=== PATIENT | male | born 1940 | race Caucasian/White ===

== ENCOUNTER → 2019-05-02 11:00 | Outpatient (BNVA) | payer MEDICARE, OTHER, SELFPAY | PROVIDERS: Family Provider Internal Medicine; Visit Provider Urology | DX: N41.9 Inflammatory disease of prostate, unspecified (principal); R97.20 Elevated prostate specific antigen [PSA] | CPT/HCPCS: 81001; 84153 ==

== ENCOUNTER → 2019-05-17 09:55 | Outpatient (BNVA) | payer MEDICARE, OTHER, SELFPAY | PROVIDERS: Family Provider Internal Medicine; Visit Provider Urology | DX: N41.9 Inflammatory disease of prostate, unspecified (principal); N41.8 Other inflammatory diseases of prostate; R97.20 Elevated prostate specific antigen [PSA] | CPT/HCPCS: 81001 ==

== ENCOUNTER → 2019-08-09 10:31 | Outpatient (BNVA) | payer MEDICARE, OTHER, SELFPAY | PROVIDERS: Family Provider Internal Medicine; Visit Provider Urology | DX: R97.20 Elevated prostate specific antigen [PSA] (principal); N39.9 Disorder of urinary system, unspecified | CPT/HCPCS: 84153 ==

== ENCOUNTER → 2019-08-10 14:01 | Outpatient (BNVA) | payer MEDICARE, OTHER, SELFPAY | PROVIDERS: Family Provider Internal Medicine; Visit Provider Urology | DX: N41.8 Other inflammatory diseases of prostate (principal); R97.20 Elevated prostate specific antigen [PSA] | CPT/HCPCS: 81001 ==

== ENCOUNTER 2019-11-22 09:24 | Outpatient (CLI) | payer MEDICARE, OTHER, SELFPAY ==
--- NOTE | 2019-11-22 09:32 | CT_ITS ---
WS: [id number] CT CHEST, ABDOMEN AND PELVIS WITH CONTRAST. HISTORY: MELANOMA TECHNIQUE: Contiguous 5 mm axial imaging performed through the chest, abdomen and pelvis with IV cont rast, oral contrast has been provided. Coronal and sagittal reformats chest. Coronal and sagittal ref ormats through the abdomen and pelvis. All CT scans at [facility] use at least one of the se dose optimization techniques: automated exposure control; mA and/or kV adjustment per patient size (includes targeted exams where dose is matched to clinical indication); or iterative reconstruction. CONTRAST: Visipaque 320; 95 mL IV. DLP: 1889.08 mGy.cm COMPARISON: 11/18/2018, 11/16/2017, 12/02/[address]: Very slight slow increase in size of the RIGHT upper lobe pulmonary nodule, image 17 of ser ies 4. Nodule now measures 10 mm at its maximum diameter. Additional 7 mm nodule RIGHT upper lobe is stable. Stable groundglass attenuation measuring 11 mm LEFT upper lobe. No new pulmonary nodules. Sub centimeter mediastinal and hilar lymph nodes. The largest lymph nodes are more rounded measuring 9 mm in the RIGHT paratracheal and AP window. These are not significantly changed. Heart size is normal. Mild enlargement of the pulmonary artery. No pericardial or pleural effusions. Abdomen CT: Mild hepatic steatosis. Stable 1 cm cyst LEFT lobe of the liver. No bile duct dilatation. Splenic granulomata. Negative spleen and gallbladder. No adrenal mass. Cortical scar upper pole RIGH T kidney. Mild atherosclerosis aorta. No ascites. No adenopathy. Pelvic CT: Normal appendix. There is no GI tract obstruction. Mild prostate gland enlargement No osteoblastic or osteolytic bone disease. CT/CT chest abd pel w con* IMPRESSION: 1. Very slight increase in size of the RIGHT upper lobe nodule now measuring 1 0 mm. Mass has very slowly increased in size since 2017. The remaining upper lo be subsolid and groundglass nodules are essentially stable. Indolent or slow-gr owing neoplasm is not excluded. 2. Hilar and mediastinal lymph nodes are also unchanged with the largest measu ring 9 mm in short axis diameter. 3. No metastatic disease to the liver.
[2019-11-22 10:14] LABS: Basophils # 0.1 10^3/uL (0.0-0.1); Basophils % 0.9 %; Eosinophils # 0.2 10^3/uL (0.0-0.8); Eosinophils % 3.2 %; Hematocrit 47.8 % (42.0-52.0); Hemoglobin 15.6 g/dL (11.7-16.6); Lymphocytes # 2.3 10^3/uL (0.8-4.8); Lymphocytes % 34.8 %; Mean Corpuscular HGB Conc 32.6 g/dL (30.0-36.0); Mean Corpuscular Hemoglobin 30.1 pg (28.0-34.0); Mean Corpuscular Volume 92.3 fL (80-94); Monocytes # 0.7 10^3/uL (0.2-0.9); Monocytes % 10.2 %; Neutrophils # 3.31 10^3/uL (1.8-7.7); Neutrophils % 50.6 %; Nucleated Red Blood Cells % 0 %; Platelet Count 226 10^3/cmm (130-400); Red Blood Count 5.18 10^6/uL (4.1-5.3); Red Cell Distribution Width 12.7 % (12.1-15.1); White Blood Count 6.6 10^3/uL (4.0-10.0)
[2019-11-22 10:33] LABS: Alanine Aminotransferase 16 U/L (0-41); Albumin Level 4.6 g/dL (3.5-5.2); Alkaline Phosphatase 51 IU/L (40-130); Anion Gap 14.4 (5-19); Aspartate Amino Transferase 41 U/L (0-40); Blood Urea Nitrogen 25 mg/dL (8-23); Calcium 9.9 mg/dL (8.5-10.5); Carbon Dioxide 27 mmol/L (22-29); Chloride 102 mmol/L (98-107); Globulin 3.2 g/dL (1.3-4.6); Glucose 113 mg/dL (65-115); Lactate Dehydrogenase 186 U/L (135-225); Osmolality Calculated 293 mOsm/kg (285-295); Potassium 4.4 mmol/L (3.5-5.1); Sodium 139 mmol/L (136-145); Total Bilirubin 0.6 mg/dL (0.15-1.2); Total Protein 7.8 g/dL (6.6-8.7)
[2019-11-22] MEDS: iodixanol 320 mg/mL 100mL Btl IV (11:02)
[2019-11-22] MEDS: iohexol 300 mg/mL 50 mL Btl PO (11:05)
== END 2019-11-22 09:25 | disposition home or self-care (01) ==
LOC: CT 09:26
PROVIDERS: PCP Electrodiagnostic Medicine; Visit Provider Internal Medicine Medical Oncology
DX: C43.4 Malignant melanoma of scalp and neck (principal); R91.1 Solitary pulmonary nodule
CPT/HCPCS: 36415; 71260; 74177; 80053; 83615; 85025

== ENCOUNTER 2019-11-28 13:50 | Outpatient (CLI) | payer MEDICARE, OTHER, SELFPAY ==
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
== END 2019-11-28 13:51 | disposition home or self-care (01) ==
LOC: ONCMED 13:52
PROVIDERS: PCP Electrodiagnostic Medicine; Visit Provider Internal Medicine Medical Oncology
DX: Z08 Encounter for follow-up examination after completed treatment for malignant neoplasm (principal); Z85.820 Personal history of malignant melanoma of skin; R91.8 Other nonspecific abnormal finding of lung field; I10 Essential (primary) hypertension; Z86.73 Personal history of transient ischemic attack (TIA), and cerebral infarction without residual deficits; G47.33 Obstructive sleep apnea (adult) (pediatric); F17.211 Nicotine dependence, cigarettes, in remission; F17.221 Nicotine dependence, chewing tobacco, in remission
CPT/HCPCS: G0463

== ENCOUNTER → 2020-02-06 09:00 | Outpatient (BNVA) | payer MEDICARE, OTHER, SELFPAY | PROVIDERS: PCP Electrodiagnostic Medicine; Visit Provider Urology | DX: R97.20 Elevated prostate specific antigen [PSA] (principal) | CPT/HCPCS: 84153 ==

== ENCOUNTER → 2020-02-08 11:05 | Outpatient (BNVA) | payer MEDICARE, OTHER, SELFPAY | PROVIDERS: PCP Electrodiagnostic Medicine; Visit Provider Urology | DX: R97.20 Elevated prostate specific antigen [PSA] (principal) | CPT/HCPCS: 81003 ==

== ENCOUNTER → 2020-08-07 14:54 | Outpatient (BNVA) | payer MEDICARE, OTHER, SELFPAY | PROVIDERS: PCP Electrodiagnostic Medicine; Visit Provider Urology | DX: R97.20 Elevated prostate specific antigen [PSA] (principal) | CPT/HCPCS: 84153 ==

== ENCOUNTER → 2020-08-14 11:00 | Outpatient (BNVA) | payer MEDICARE, OTHER, SELFPAY | PROVIDERS: PCP Electrodiagnostic Medicine; Visit Provider Urology | DX: R97.20 Elevated prostate specific antigen [PSA] (principal) | CPT/HCPCS: 81003 ==

== ENCOUNTER 2020-12-13 08:52 | Outpatient (CLI) | payer MEDICARE, OTHER, SELFPAY ==
[2020-12-13 09:30] LABS: Basophils % 0.6 %; Eosinophils # 0.2 10^3/uL (0.0-0.8); Eosinophils % 2.7 %; Hematocrit 42.9 % (42.0-52.0); Hemoglobin 13.8 g/dL (11.7-16.6); Lymphocytes # 2.4 10^3/uL (0.8-4.8); Lymphocytes % 34.2 %; Mean Corpuscular HGB Conc 32.2 g/dL (30.0-36.0); Mean Corpuscular Hemoglobin 29.5 pg (28.0-34.0); Mean Corpuscular Volume 91.7 fl (80-94); Mean Platelet Volume 10.5 fL (7.4-10.4); Monocytes # 0.6 10^3/uL (0.2-0.9); Monocytes % 8.3 %; Neutrophils # 3.75 10^3/uL (1.8-7.7); Neutrophils % 53.9 %; Nucleated Red Blood Cells % 0 %; Platelet Count 222 10^3/cmm (130-400); Red Blood Count 4.68 10^6/uL (4.1-5.3); Red Cell Distribution Width 13.7 % (12.1-15.1)
--- NOTE | 2020-12-13 09:56 | CT_ITS ---
WS: [id number] CT CHEST TECHNIQUE: Noncontrast CT of the chest with coronal and sagittal reformatted images. CLINICAL INFORMATION: MALIGNANT MELANOMA OF SCALP NECK COMPARISON: CT November 22, 2019 and . Multiple prior examinations dating back to 2016. DLP: 869.[address] scans at [facility] use at least one of these dose optimization techniques: automated e xposure control; mA and/or kV adjustment per patient size (includes targeted exams where dose is matc hed to clinical indication); or iterative reconstruction. FINDINGS: Semisolid right upper lobe nodule measures slightly larger compared to November 22, 2019. This measu res approximately 15 x 13 mm compared to 12 x 10 mm previously. Previously described 8 mm nodule in t he right upper lobe medially is unchanged in size but appears slightly more solid today. Hazy groundglass opacity left upper lobe today measures 12 x 10 mm compared to 10 mm previous. This a ppears slightly progressed. Findings are suspicious for progressive disease. Prominent anterior mediastinal and paratracheal lymph nodes are not significantly changed. No axillary lymphadenopathy. Incidental left hepatic cyst. Adrenal glands are normal. Splenic granulo mas. Hypertrophic changes thoracic spine. CT/CT chest wo con [id number] IMPRESSION: 1. Previously described nodules have slightly progressed compared to the prior examinations described above. Findings are suspicious for progressive disease. This can be further evaluated PET/CT. 2. Prominent anterior mediastinal and paratracheal lymph nodes are unchanged. 3. No other significant changes from previous.
[2020-12-13 10:02] LABS: Alanine Aminotransferase 7 U/L (0-41); Albumin Level 4.2 g/dL (3.5-5.2); Alkaline Phosphatase 52 IU/L (40-130); Aspartate Amino Transferase 22 U/L (0-40); Blood Urea Nitrogen 21 mg/dL (8-23); Calcium 9.3 mg/dL (8.5-10.5); Carbon Dioxide 27 mmol/L (22-29); Chloride 103 mmol/L (98-107); Globulin 3.1 g/dL (1.3-4.6); Glucose 95 mg/dL (65-115); Lactate Dehydrogenase 165 U/L (135-225); Osmolality Calculated 291 mOsm/kg (285-295); Sodium 139 mmol/L (136-145); Total Bilirubin 0.4 mg/dL (0.15-1.2); Total Protein 7.3 g/dL (6.6-8.7)
== END 2020-12-13 08:53 | disposition home or self-care (01) ==
LOC: CT 08:59 → ONCMED 09:04
PROVIDERS: PCP Electrodiagnostic Medicine; Visit Provider Internal Medicine Medical Oncology
DX: C43.4 Malignant melanoma of scalp and neck (principal)
CPT/HCPCS: 36415; 71250; 80053; 83615; 85025

== ENCOUNTER 2020-12-19 06:38 | Outpatient (CLI) | payer MEDICARE, OTHER, SELFPAY ==
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
== END 2020-12-19 06:39 | disposition home or self-care (01) ==
LOC: ONCMED 06:39
PROVIDERS: PCP Electrodiagnostic Medicine; Visit Provider Internal Medicine Medical Oncology
DX: C43.4 Malignant melanoma of scalp and neck (principal); R91.8 Other nonspecific abnormal finding of lung field; I10 Essential (primary) hypertension; G47.33 Obstructive sleep apnea (adult) (pediatric); K21.9 Gastro-esophageal reflux disease without esophagitis; Z86.16 Personal history of COVID-19; Z86.73 Personal history of transient ischemic attack (TIA), and cerebral infarction without residual deficits; Z87.891 Personal history of nicotine dependence
CPT/HCPCS: 99214

== ENCOUNTER → 2021-02-04 10:33 | Outpatient (BNVA) | payer MEDICARE, OTHER, SELFPAY | PROVIDERS: PCP Electrodiagnostic Medicine; Visit Provider Urology | DX: N41.9 Inflammatory disease of prostate, unspecified (principal); R97.20 Elevated prostate specific antigen [PSA] | CPT/HCPCS: 81003 ==

== ENCOUNTER 2021-06-19 07:44 | Outpatient (CLI) | payer MEDICARE, OTHER, SELFPAY ==
--- NOTE | 2021-06-19 07:55 | CT_ITS ---
WS: [id number] CT NECK TECHNIQUE: Contrast-enhanced CT of the neck with coronal and sagittal reformatted images. CLINICAL INFORMATION: LOCALIZED SWELLING,MASS, LUMP COMPARISON: PET CT January 05, 2021 DLP: 409.[address] scans at [facility] use at least one of these dose optimization techniques: automated e xposure control; mA and/or kV adjustment per patient size (includes targeted exams where dose is matc hed to clinical indication); or iterative reconstruction. FINDINGS: Parotid glands are normal. Normal submandibular glands. Beam hardening artifact degrades images from dental artifact. Normal posterior nasopharynx. Normal parapharyngeal fat. Normal epiglottis. Normal v allecula and piriform sinuses. No evidence of supraglottic or glottic mass. Normal subglottic airway. Normal thyroid gland. Spiculated lesion in the RIGHT upper lobe suspicious for neoplasm measuring 1. 5 cm appears increased in size since December 13, 2020. It also appears slightly more dense today. Rec ommend further evaluation with PET/CT. Partially visualized groundglass nodule in the RIGHT upper lob e posteriorly measuring 7 mm appears stable. Fibrosis in the lung apices. Severe stenosis RIGHT proximal ICA with a tiny residual lumen. Diminutive ICA appears patent to the s kull base. Further evaluation with dedicated CTA. Moderate stenosis LEFT proximal ICA with calcified ulcerated plaque. No cervical lymphadenopathy. Mild spondylitic changes cervical spine. Partial opacification RIGHT mas toid tip. LEFT mastoid air cells well aerated. Partial opacification LEFT maxillary sinus. Small amou nt of fluid RIGHT maxillary sinus. Mucosal thickening ethmoid air cells.. CT/CT neck w con* [id number] IMPRESSION: 1. No evidence of subcutaneous mass or lesion in the LEFT upper neck or retroa uricular region in the area of palpable concern. 2. No cervical lymphadenopathy. 3. No evidence of supraglottic or glottic mass. 4. Salivary glands are normal. 5. Spiculated RIGHT upper lobe lesion appears slightly progressed since Octobe 2020 suspicious for neoplasm. Recommend further evaluation with PET/CT. 6. High-grade RIGHT proximal ICA stenosis with with diminutive cervical ICA pa tent to the skull base. Moderate stenosis LEFT proximal ICA with ulcerated athe romatous plaque. Recommend further evaluation with CTA. 7. LEFT maxillary sinusitis. Small amount of fluid in the RIGHT maxillary sinu s. Mild mucosal thickening RIGHT mastoid tip.
--- NOTE | 2021-06-19 07:55 | FL_ITS ---
WS: [id number] Barium swallow and esophagram, 06/19/2021 Clinical Data: LOCALIZED SWELLING,MASS LUMP, NECK Comparison: None. Fluoroscopy time: 1min [id number] # of spot films: 9 Findings: The patient swallowed the thick and thin barium, and it flowed through the hypopharynx without hesita tion. No stricture, mass, polyp or erosion was seen. There is a slight posterior indentation at the C 5-C6 level from osteoarthritis. The thick barium showed pooling in the piriformis and epiglottis but no penetration or aspiration. The barium entered the esophagus and there was normal motility throughout. There were occasional tert iary contractions. No reflux, stricture, polyp, mass, erosion or ulcer was noted. There were small le ft lateral diverticulum of the distal esophagus. There was a small hiatal hernia but there was no ref lux. FL/FL barium swallow [id number] Impression: 1. Minimal indentation of the C5-C6 level on of the hypopharynx from C5-C6 oste oarthritis. 2. Pooling of the thick barium in the hypopharynx which did clear on further sw allows. 3. Incidental distal diverticula of the esophagus with a hiatal hernia but no r eflux.
[2021-06-19 08:49] LABS: Blood Urea Nitrogen 25 mg/dL (8-23)
[2021-06-19] MEDS: iodixanol 320 mg/mL 100mL Btl IV (08:52)
== END 2021-06-19 07:45 | disposition home or self-care (01) ==
LOC: RAD 07:47
PROVIDERS: PCP Electrodiagnostic Medicine; Visit Provider Specialist
DX: R22.1 Localized swelling, mass and lump, neck (principal)
CPT/HCPCS: 70491; 74220; 82565; 84520

== ENCOUNTER 2021-08-20 07:01 | Outpatient (CLI) | payer MEDICARE, OTHER, SELFPAY ==
--- NOTE | 2021-08-20 07:15 | USCV_ITS ---
Ricardo Resendiz Age: 81 Gender: M : 1940 Exam Date: 08/20/2021 07:18 Ordering Phys: Mainor Corado MD ([email or web address]) Technologist: ELIF Exam Location: [facility] – [place] Indication: personal history of transient ischemia Risk Factors: Previous Vascular Surgery: Right Brachial BP: / Left Brachial BP: / Right Left Velocity (cm/s) Spectral Plaque Velocity (cm/s) Spectral Plaque Syst/Diast Broadening Syst/Diast Broadening 50.90/ 11.80 Prox CCA 77.00 / 20.80 49.00/ 12.40 Mid CCA 60.60 / 17.30 57.10/ 11.20 Distal CCA 112.90/ 32.80 168.55/48.95 Prox ICA 134.00/ 47.65 116.20/38.70 Mid ICA 82.10 / 19.30 53.30/ 21.40 Distal ICA 79.10 / 26.40 83.20 ECA 98.40 3.46 ICA/CCA 2.49 Antegrade Vertebral Antegrade 45.30/ 10.90 cm/s 35.50/ 14.90 cm/s Tri Subclavian Tri 76.90 79.60 FINDINGS Comparison:. 09/09/13. Diffuse bilateral scattered calcified plaque and intimal thickening throughout the common carotid arteries and extending through the bifurcation. Progression of carotid atherosclerosis since the prior exam. Elevated velocities and spectral broadening. Antegrade vertebral arteries. CONCLUSIONS Right ICA stenosis 50-69%. Left ICA stenosis 50-69%. Progression of diffuse carotid atherosclerosis since 2013. Dr. Cortney Jain DO (Electronically Signed) Final Date: 20 August 2021 08:27 S
== END 2021-08-20 07:02 | disposition home or self-care (01) ==
LOC: RAD 07:02
PROVIDERS: PCP Electrodiagnostic Medicine; Visit Provider Internal Medicine Cardiovascular Disease
DX: I77.9 Disorder of arteries and arterioles, unspecified (principal); Z86.73 Personal history of transient ischemic attack (TIA), and cerebral infarction without residual deficits
CPT/HCPCS: 93880

== ENCOUNTER 2021-11-04 15:25 | Outpatient (CLI) | payer MEDICARE, OTHER, SELFPAY | END 2021-11-04 15:26 | disposition home or self-care (01) | LOC: LAB 15:29 | PROVIDERS: PCP Electrodiagnostic Medicine; Visit Provider Urology | DX: R97.20 Elevated prostate specific antigen [PSA] (principal) | CPT/HCPCS: 36415; 84153 ==

== ENCOUNTER → 2021-11-05 10:26 | Outpatient (BNVA) | payer MEDICARE, OTHER, SELFPAY | PROVIDERS: PCP Electrodiagnostic Medicine; Visit Provider Urology | DX: R97.20 Elevated prostate specific antigen [PSA] (principal); N41.1 Chronic prostatitis; Z86.73 Personal history of transient ischemic attack (TIA), and cerebral infarction without residual deficits; I10 Essential (primary) hypertension; Z80.42 Family history of malignant neoplasm of prostate | CPT/HCPCS: 51798; 99213 ==

== ENCOUNTER → 2021-11-18 10:44 | Outpatient (BNVA) | payer MEDICARE, OTHER, SELFPAY | PROVIDERS: PCP Electrodiagnostic Medicine; Visit Provider Urology | DX: R97.20 Elevated prostate specific antigen [PSA] (principal); N41.1 Chronic prostatitis; Z86.73 Personal history of transient ischemic attack (TIA), and cerebral infarction without residual deficits; Z80.42 Family history of malignant neoplasm of prostate; I10 Essential (primary) hypertension | CPT/HCPCS: 81003 ==

== ENCOUNTER → 2021-12-20 09:09 | Outpatient (BNVA) | payer MEDICARE, OTHER, SELFPAY | PROVIDERS: PCP Electrodiagnostic Medicine; Visit Provider Urology | DX: N41.1 Chronic prostatitis (principal); R97.20 Elevated prostate specific antigen [PSA]; Z80.42 Family history of malignant neoplasm of prostate | CPT/HCPCS: 51741; 51798; 81003; 99213 ==

== ENCOUNTER → 2022-01-19 18:50 | Outpatient (BNVA) | payer MEDICARE, OTHER, SELFPAY | PROVIDERS: PCP Electrodiagnostic Medicine; Visit Provider Registered Nurse Neonatal Intensive Care | DX: N39.0 Urinary tract infection, site not specified (principal); R39.9 Unspecified symptoms and signs involving the genitourinary system | CPT/HCPCS: 81000; 87086 ==

== ENCOUNTER → 2022-02-03 11:30 | Outpatient (BNVA) | payer MEDICARE, OTHER, SELFPAY | PROVIDERS: PCP Electrodiagnostic Medicine; Visit Provider Urology | DX: N41.1 Chronic prostatitis (principal) | CPT/HCPCS: 51741; 51798; 81003; 99214 ==

== ENCOUNTER 2022-02-05 10:15 | Outpatient (CLI) | payer MEDICARE, OTHER, SELFPAY ==
--- NOTE | 2022-02-05 10:00 | CT_ITS ---
WS: [id number] CT CHEST TECHNIQUE: Contrast enhanced CT of the chest with coronal and sagittal reformatted images. CLINICAL INFORMATION: bilateral lung nodules COMPARISON: CT chest December 13, 2020. PET/CT January 05, 2021 DLP: 781.[address] scans at [facility] use at least one of these dose optimization techniques: automated e xposure control; mA and/or kV adjustment per patient size (includes targeted exams where dose is matc hed to clinical indication); or iterative reconstruction. FINDINGS: Spiculated irregular RIGHT upper lobe nodule has progressed compared to previous suspicious for neopl asm. This also has a more solid appearance today. This measures approximately 1.4 x 2.1 CM. This was equivocal on the prior PET/CT. Recommend additional PET/CT. New wedge-shaped infiltrate in the RIGHT lower lobe with air bronchograms suspicious for pneumonia. W edge-shaped infiltrate measures 3.9 x 2.3 cm. Slight LEFT basilar atelectasis. Groundglass opacity in the LEFT upper lobe laterally has slightly progressed compared to previous today measuring 13 x 12 m m. Slightly spiculated RIGHT upper lobe posterior medial opacity measuring 7 mm is unchanged. Fibrosis i n the lung apices. Slight atelectasis in the RIGHT middle lobe. New pulmonary opacity RIGHT lower lob e measuring 7 mm. This is new compared to previous. Calcified granuloma LEFT lower lobe. Patchy opaci ties in the LEFT lower lobe. CT/CT chest w con* [id number] IMPRESSION: 1. Spiculated irregular pulmonary lesion in the RIGHT upper lobe has progresse d compared to previous. Recommend further evaluation with PET/CT. 2. Slightly progressed groundglass opacity in the LEFT upper lobe laterally. 3. New wedge-shaped consolidation RIGHT lower lobe measuring 2.3 x 3.9 cm susp icious for pneumonia with air bronchograms. 4. New noncalcified nodule RIGHT lower lobe laterally measuring 7.6 mm. 5. Slight patchy infiltrates in the LEFT lower lobe. 6. A few prominent peribronchial lymph nodes are unchanged. 7. No other significant changes compared to previous.
[2022-02-05] MEDS: iohexol 350 mg/mL 500 mL Btl (per mL) IV (10:49)
[2022-02-05 12:55] LABS: Lactate Dehydrogenase 264 U/L (135-225)
== END 2022-02-05 10:16 | disposition home or self-care (01) ==
LOC: RAD 10:16
PROVIDERS: PCP Electrodiagnostic Medicine; Visit Provider Internal Medicine Medical Oncology
DX: C43.9 Malignant melanoma of skin, unspecified (principal); R91.8 Other nonspecific abnormal finding of lung field
CPT/HCPCS: 36415; 71260; 83615; Q9967

== ENCOUNTER 2022-02-11 14:03 | Oncology outpatient (recurring) (ONCR) | payer MEDICARE, OTHER, SELFPAY | END 2022-02-22 23:59 | disposition home or self-care (01) | PROVIDERS: PCP Electrodiagnostic Medicine; Visit Provider Internal Medicine Medical Oncology | DX: C43.4 Malignant melanoma of scalp and neck (principal); R91.1 Solitary pulmonary nodule; R91.8 Other nonspecific abnormal finding of lung field | CPT/HCPCS: 99214 ==

== ENCOUNTER → 2022-02-18 10:57 | Outpatient (BNVA) | payer MEDICARE, OTHER, SELFPAY | PROVIDERS: PCP Electrodiagnostic Medicine; Visit Provider Urology | DX: N41.1 Chronic prostatitis (principal); R41.89 Other symptoms and signs involving cognitive functions and awareness | CPT/HCPCS: 51798; 81003; 99213 ==

== ENCOUNTER → 2022-08-08 09:19 | Outpatient (BNVA) | payer MEDICARE, SELFPAY | PROVIDERS: PCP Electrodiagnostic Medicine; Visit Provider Internal Medicine Cardiovascular Disease | DX: I10 Essential (primary) hypertension (principal); E78.5 Hyperlipidemia, unspecified; Z86.73 Personal history of transient ischemic attack (TIA), and cerebral infarction without residual deficits; Z87.891 Personal history of nicotine dependence | CPT/HCPCS: 99213 ==

== ENCOUNTER → 2022-12-08 09:29 | Outpatient (BNVA) | payer MEDICARE, SELFPAY | PROVIDERS: PCP Electrodiagnostic Medicine; Visit Provider Nurse Practitioner Family | DX: L57.0 Actinic keratosis (principal); Z85.828 Personal history of other malignant neoplasm of skin; Z85.820 Personal history of malignant melanoma of skin; L82.1 Other seborrheic keratosis; D22.5 Melanocytic nevi of trunk; L57.8 Other skin changes due to chronic exposure to nonionizing radiation; L81.4 Other melanin hyperpigmentation; L85.3 Xerosis cutis | CPT/HCPCS: 17000; 99213 ==

== ENCOUNTER → 2023-05-28 07:40 | Outpatient (BNVA) | payer MEDICARE, SELFPAY | PROVIDERS: PCP Electrodiagnostic Medicine; Referring Provider Electrodiagnostic Medicine; Visit Provider Psychiatry & Neurology Neurology | DX: I65.23 Occlusion and stenosis of bilateral carotid arteries (principal); Z86.73 Personal history of transient ischemic attack (TIA), and cerebral infarction without residual deficits; R29.90 Unspecified symptoms and signs involving the nervous system; Z87.891 Personal history of nicotine dependence; I10 Essential (primary) hypertension | CPT/HCPCS: 99203 ==

== ENCOUNTER → 2023-06-04 09:13 | Outpatient (BNVA) | payer MEDICARE, SELFPAY | PROVIDERS: PCP Electrodiagnostic Medicine; Visit Provider Nurse Practitioner Family | DX: L57.0 Actinic keratosis (principal); L82.1 Other seborrheic keratosis; D22.5 Melanocytic nevi of trunk; L57.8 Other skin changes due to chronic exposure to nonionizing radiation; L81.4 Other melanin hyperpigmentation; L85.3 Xerosis cutis; Z85.828 Personal history of other malignant neoplasm of skin | CPT/HCPCS: 17000; 99213 ==

== ENCOUNTER 2023-06-15 11:54 | Outpatient (CLI) | payer MEDICARE, SELFPAY ==
--- NOTE | 2023-06-15 12:15 | USCV_ITS ---
Martín Ricardo Age: 83 Gender: M : 1940 Exam Date: 06/15/2023 12:00 Ordering Phys: Levar Ovalles MD Technologist: CT Exam Location: [facility] [place] Indication: stenosis Risk Factors: Previous Vascular Surgery: Right Brachial BP: / Left Brachial BP: / Right Left Velocity (cm/s) Spectral Plaque Velocity (cm/s) Spectral Plaque Syst/Diast Broadening Syst/Diast Broadening 46.10/ 12.20 Prox CCA 99.00 / 17.90 40.40/ 10.30 Mid CCA 75.60 / 21.50 31.50/ 10.10 Distal CCA 72.00 / 21.50 / Prox ICA 497.00/ 191.10 / Mid ICA 70.60 / 17.90 / Distal ICA 64.80 / 17.50 92.90 ECA 97.20 ICA/CCA 6.90 Antegrade Vertebral Antegrade 45.00/ 19.00 cm/s 42.30/ 14.70 cm/s Bi Subclavian Bi 74.20 82.40 FINDINGS Comparison:. 08/20/21. Complete occlusion right ICA at the bifurcation, extensive plaque. New since the prior exam. Severe obstructive lesions noted in the left internal carotid artery estimated at 70-99% stenosis. Nearly occluded. Progression of stenosis. Antegrade vertebral arteries. CONCLUSIONS Complete occlusion right ICA. New since 2021. Left ICA stenosis 70-99%. Nearly completely occluded. Recommend evaluation by CV surgery. Dr. Cortney Jain DO (Electronically Signed) Final Date: 15 June 2023 13:59 S
== END 2023-06-15 11:55 | disposition home or self-care (01) ==
LOC: RAD 11:56
PROVIDERS: PCP Electrodiagnostic Medicine; Visit Provider Psychiatry & Neurology Neurology
DX: Z86.73 Personal history of transient ischemic attack (TIA), and cerebral infarction without residual deficits (principal); I65.23 Occlusion and stenosis of bilateral carotid arteries
CPT/HCPCS: 93880

== ENCOUNTER 2023-06-23 09:47 | Outpatient (CLI) | payer MEDICARE, SELFPAY ==
--- NOTE | 2023-06-23 09:52 | CTR_ITS ---
PROCEDURE INFORMATION: Exam: CTA Neck With Contrast Exam date and time: 06/23/2023 10:48 AM Age: 83 years old Clinical indication: Abnormal findings; Abnormal carotid US; Patient HX: Follow up to US carotids; Additional info: Carotid artery stenosis/occlusion, stat TECHNIQUE: Imaging protocol: Computed tomographic angiography of the neck with contrast. Exam focused on the cervical segments of the vasculature. 3D rendering (Not supervised by radiologist): MIP and/or 3D reconstructed images were created by the technologist. Radiation optimization: All CT scans at this facility use at least one of these dose optimization techniques: automated exposure control; mA and/or kV adjustment per patient size (includes targeted exams where dose is matched to clinical indication); or iterative reconstruction. Contrast material: OMNIPAQUE 350; Contrast volume: 100 ml; Contrast route: INTRAVENOUS (IV); COMPARISON: CT neck w con* [id number] 06/19/2021 8:32 AM RADIATION DOSE METRICS: Total DLP (mGy-cm): 237.11 FINDINGS: Right common carotid artery: There is moderate to severe soft and calcific plaque noted in the right carotid bulb with complete opacification of the right internal carotid artery. Right internal carotid artery: See Right common carotid artery finding. Right external carotid artery: No occlusion or stenosis of the origin. Left common carotid artery: See Left internal carotid artery finding. Left internal carotid artery: Soft and calcific moderate plaque is noted in the left carotid bulb extending into the left internal carotid artery causing focal short segment subtotal occlusion apparent central filling defect possibly represent free-floating thrombus. Left external carotid artery: No occlusion or stenosis of the origin. Right vertebral artery: No stenosis. No dissection or occlusion. Left vertebral artery: No stenosis. No dissection or occlusion. Orbital cavities: The patient is post bilateral cataract surgery. Paranasal sinuses: Mucosal thickening is noted within the right maxillary antrum and ethmoid air cells. Soft tissues: Normal. No significant soft tissue swelling. Bones/joints: No acute fracture. 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 Subtotal occlusion of the due to a combination of atheromatous plaque and possible free floating thrombus in the left proximal internal carotid artery. REFERENCES: NASCET CRITERIA. The degree of stenosis in the cervical segment of the internal carotid artery is based on NASCET criteria. Normal is no stenosis. Mild is less than 50% stenosis. Moderate is 50-69% stenosis. Severe is 70% to 99% stenosis. Total occlusion is no detectable patent lumen.
[2023-06-23 10:47] LABS: Blood Urea Nitrogen 23 mg/dL (8-23)
[2023-06-23] MEDS: iohexol 350 mg/mL 500 mL Btl (per mL) IV (10:57)
== END 2023-06-23 09:48 | disposition home or self-care (01) ==
LOC: RAD 09:48
PROVIDERS: Radiology Diagnostic Radiology; PCP Electrodiagnostic Medicine; Visit Provider Electrodiagnostic Medicine
DX: I65.21 Occlusion and stenosis of right carotid artery (principal)
CPT/HCPCS: 70498; 82565; 84520; Q9967

== ENCOUNTER → 2023-06-29 10:41 | Outpatient (BNVA) | payer MEDICARE, SELFPAY | PROVIDERS: PCP Electrodiagnostic Medicine; Visit Provider Thoracic Surgery (Cardiothoracic Vascular Surgery) | DX: I65.23 Occlusion and stenosis of bilateral carotid arteries (principal); Z87.891 Personal history of nicotine dependence; I10 Essential (primary) hypertension | CPT/HCPCS: 99204 ==

== ENCOUNTER → 2023-08-03 09:56 | Outpatient (BNVA) | payer MEDICARE, SELFPAY | PROVIDERS: PCP Electrodiagnostic Medicine; Visit Provider Internal Medicine Cardiovascular Disease | DX: I10 Essential (primary) hypertension (principal); I65.23 Occlusion and stenosis of bilateral carotid arteries; Z86.73 Personal history of transient ischemic attack (TIA), and cerebral infarction without residual deficits; E78.5 Hyperlipidemia, unspecified; Z87.891 Personal history of nicotine dependence | CPT/HCPCS: 99214 ==

== ENCOUNTER → 2023-08-25 09:50 | Outpatient (BNVA) | payer MEDICARE, SELFPAY | PROVIDERS: PCP Electrodiagnostic Medicine; Visit Provider Internal Medicine Cardiovascular Disease | DX: I10 Essential (primary) hypertension (principal); E78.5 Hyperlipidemia, unspecified; I48.91 Unspecified atrial fibrillation; I65.23 Occlusion and stenosis of bilateral carotid arteries; Z86.73 Personal history of transient ischemic attack (TIA), and cerebral infarction without residual deficits; Z79.01 Long term (current) use of anticoagulants; Z87.891 Personal history of nicotine dependence | CPT/HCPCS: 99214 ==

== ENCOUNTER 2023-09-01 06:51 | Outpatient (CLI) | payer MEDICARE, SELFPAY ==
--- NOTE | 2023-09-01 07:00 | USCV_ITS ---
Ricardo Resendiz Age: 83 Gender: M : 1940 Exam Date: 09/01/2023 07:13 Ordering Phys: Mainor Corado MD ([email or web address]) Technologist: LETHA [place] [facility] [place]: AFIB BP: 169 / 110 HR: 65 Rhythm: Atrial fibrillation Technical Quality: Adequate MEASUREMENTS (Male / Female) Normal Values 2D ECHO LV Diastolic Diameter PLAX 4.7 cm 4.2 - 5.9 / 3.9 - 5.3 cm IVS Diastolic Thickness 1.3 cm 0.6 - 1.0 / 0.6 - 0.9 cm IVS Systolic Thickness 1.5 cm LVPW Diastolic Thickness 1.3 cm 0.6 - 1.0 / 0.6 - 0.9 cm LVPW Systolic Thickness 2.4 cm LVOT Diameter 2.0 cm LV Ejection Fraction 2D Teich 61.8 % LV Ejection Fraction MOD 4C 54.4 % LV Ejection Fraction MOD 2C 54.1 % LV Ejection Fraction 2C AL 56.3 % LA Diameter 4.1 cm RA Systolic Volume 4C AL 40.9 ml RA Systolic Volume 4C MOD 39.9 ml LA Sys Volume AL 55.8 cm cubed LA Sys Volume Index AL 28.1 cm cubed/m squared Aorta at Sinotubular Diameter 2.6 cm IVC Diameter 1.7 cm M-MODE LA Ao Ratio MM 1.1 AV Cusp Separation MM 0.9 cm DOPPLER AV Peak Velocity 160.0 cm/s LVOT Peak Velocity 84.0 cm/s AV Area Cont Eq vti 2.0 cm squared AV Area Cont Eq pk 1.7 cm squared MV Peak Velocity 83.0 cm/s MV Area PHT 2.7 cm squared Mitral E to A Ratio 0.0 TR Peak Velocity 294.0 cm/s TR Peak Gradient 34.6 mmHg TR Mean Velocity 236.0 cm/s TR Mean Gradient 24.0 mmHg TR Velocity Time Integral 103.7 cm TV Peak E Velocity 41.0 cm/s Right Atrial Pressure 8.0 mmHg Pulmonary Artery Systolic Pressu 42.6 mmHg PV Peak Velocity 101.0 cm/s RV Ejection Time 0.3 s FINDINGS Left Ventricle Normal LV size ejection fraction of 55%. Mild concentric left ventricular hypertrophy.no regional wall motion abnormalities. Right Ventricle The right ventricle is normal in size and function. Right Atrium Mildly increased right atrial size. Left Atrium Mildly increased left atrial size. Mitral Valve Mild to moderate mitral valve regurgitation. Aortic Valve Minimally thickened aortic valve Tricuspid Valve Mild tricuspid valve regurgitation. Estimated pulmonary artery peak systolic pressure 43 mmHg Pulmonic Valve Moderate pulmonary valve regurgitation. Pericardium Normal pericardium without effusion. Aorta Normal ascending aorta dimension. IVC Normal IVC dimension with <50% respiratory change of the inferior vena cava. CONCLUSIONS Normal LV size ejection fraction of 55%. Mild concentric left ventricular hypertrophy.no regional wall motion abnormalities. Mild biatrial enlargement. Mild to moderate mitral valve regurgitation. Mild tricuspid valve regurgitation. Mild pulmonary hypertension. Estimated pulmonary artery peak systolic pressure 43 mmHg. There is no pericardial effusion. There are no intracardiac masses. Compared to the study from 09/09/2013, the valvular regurgitations, biatrial enlargement and pulmonary hypertension are new Dr Mainor Corado MD FACC (Electronically Signed) Final Date: 04 September 2023 20:23 S
== END 2023-09-01 06:52 | disposition home or self-care (01) ==
LOC: RAD 06:51
PROVIDERS: PCP Electrodiagnostic Medicine; Visit Provider Internal Medicine Cardiovascular Disease
DX: I34.0 Nonrheumatic mitral (valve) insufficiency (principal); I48.91 Unspecified atrial fibrillation; I10 Essential (primary) hypertension
CPT/HCPCS: 93005; 93306

== ENCOUNTER 2023-09-10 07:13 | Outpatient (CLI) | payer MEDICARE, SELFPAY ==
--- NOTE | 2023-09-10 | ECG_ITS ---
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 Interpretive Statements NAME OF STUDY: LEXISCAN SESTAMIBI STRESS TEST INDICATION: New Onset AFIB PROCEDURE: At the baseline, the EKG revealed atrial fibrillation with a ventricular response rate of 65 bpm. Nonspecific T wave changes. The baseline heart was 71 bpm with a blood pressue of 135/105 mm of Hg Lexiscan was infused over a period of 20 seconds. A total of 0.4 milligrams of Lexiscan was infused. The stress phase was continued for a total of 5 minutes. Heart rate at the end of the stress phase was 74 bpm with a blood pressure 157/103 mm of Hg. The EKG at the peak infusion revealed no significant changes. Sestamibi was injected 20 seconds after the Lexiscan infusion. Heart rate at the end of the recovery phase was 70 bpm with a blood pressure of 160/98 mm of Hg. CONCLUSION: 1. No significant EKG changes with the LexiScan infusion 2. No LexiScan induced chest pain or cardiac arrhythmia 3. Normal blood pressure and heart rate response 4. Sestamibi/sestamibi perfusion scan pending; see separate report. Electronically Signed On 09-10-2023 23:18:58 CDT by Mainor Corado M.D. [email or web address]
[2023-09-10 07:14] VITALS: BMI 27.0
--- NOTE | 2023-09-10 07:19 | NMCV_ITS ---
NM ja perf SPECT r/s* [id number] Ricardo Resendiz Age: 83 Gender: M : 1940 Exam Date: 09/10/2023 08:10 Ordering Phys: Mainor Corado MD ([email or web address]) Technologist: PROSPER Valle Exam Location: [facility] Indications: New onset a-fib STRESS TEST Please see separate stress test report in [facility] for full findings IMAGE PROTOCOL Rest/Stress 1 Lexiscan Day Radiopharmaceutical Dose (mCi) Administration Site Administered by Rest: Tc-99m 10.7 IV PROSPER Valle Sestamibi Stress:Tc-99m 32.8 IV PROSPER Valle Sestamibi Rest: 10-Sep-2023 60 Discovery 630 Stress: 10-Sep-2023 30 Discovery 630 0.4mg Lexiscan. Images obtained in supine and prone position. SPECT RESULTS Technical Quality: Good Raw Data Analysis: Subdiaphragmatic activity Image Corrections: No attenuation or motion correction applied Summed Stress Score: 4 Summed Rest Score: 0 Summed Difference Score: 4 PERFUSION FINDINGS Small to moderate area of minimal to moderately decreased tracer uptake involving the mid anterolateral, mid inferolateral and apical lateral regions with some reversibility FUNCTIONAL RESULTS (calculated via Gated SPECT) Stress Image LV EF (%): 66 Stress EDV (mL):94 TID: 0.98 Stress ESV (mL):32 FUNCTIONAL FINDINGS: Segmental wall motion analysis revealing no gross wall motion abnormality IMPRESSIONS 1. Myocardial perfusion imaging revealing small to moderate area of minimal to moderately decreased tracer uptake with Significant reversibility mostly with the supine imaging suggesting ischemia is used on the left circumflex artery. However with the prone imaging, no significant reversibility was noted. Because of the inconsistency, the positive predictive value of this finding is limited. Clinical correlation is recommended 2. Normal LV ejection fraction 66%. 3. LV wall motion analysis revealing no gross wall motion abnormalities. 4. Normal LV volume No similar previous studies are available for comparison Dr Mainor Corado MD FAC (Electronically Signed) Final Date: 10 September 2023 11:11 S
[2023-09-10] MEDS: regadenoson 0.4 Mg/5 ml Syringe IVP (08:58)
[2023-09-10 09:34] VITALS: BP 168/99; PULSE 72
== END 2023-09-10 07:14 | disposition home or self-care (01) ==
PROVIDERS: PCP Electrodiagnostic Medicine; Visit Provider Internal Medicine Cardiovascular Disease
DX: I48.91 Unspecified atrial fibrillation (principal); R94.39 Abnormal result of other cardiovascular function study
CPT/HCPCS: 36415; 78452; 80048; 84443; 85025; 93017; 96374; A9500; J2785

== ENCOUNTER → 2023-11-30 10:21 | Outpatient (BNVA) | payer MEDICARE, SELFPAY | PROVIDERS: PCP Electrodiagnostic Medicine; Visit Provider Nurse Practitioner Family | DX: D22.5 Melanocytic nevi of trunk (principal); L57.8 Other skin changes due to chronic exposure to nonionizing radiation; L81.4 Other melanin hyperpigmentation; Z85.828 Personal history of other malignant neoplasm of skin; Z85.820 Personal history of malignant melanoma of skin | CPT/HCPCS: 99213 ==

== ENCOUNTER → 2024-02-09 09:58 | Outpatient (BNVA) | payer MEDICARE, SELFPAY | PROVIDERS: PCP Electrodiagnostic Medicine; Visit Provider Nurse Practitioner Family | DX: I10 Essential (primary) hypertension (principal); I48.91 Unspecified atrial fibrillation; I65.23 Occlusion and stenosis of bilateral carotid arteries; E78.5 Hyperlipidemia, unspecified; Z87.891 Personal history of nicotine dependence; Z79.01 Long term (current) use of anticoagulants | CPT/HCPCS: 99214 ==

== ENCOUNTER 2024-04-26 07:38 | Outpatient (CLI) | payer BC, SELFPAY ==
--- NOTE | 2024-04-26 07:43 | CTR_ITS ---
PROCEDURE INFORMATION: Exam: CTA Abdominal Aorta and Bilateral Lower Extremities (Run-off) With Contrast Exam date and time: 04/26/2024 8:27 AM Age: 84 years old Clinical indication: Prior surgery; Surgery date: 1-6 months; Surgery type: Hernia, RT knee +6 months; Bilateral calf pain x 5 months; Additional info: Intermittent claudication TECHNIQUE: Imaging protocol: Computed tomographic angiography of the of the abdominal aorta, pelvis and bilateral lower extremities with contrast. 3D rendering (Not supervised by radiologist): MIP and/or 3D reconstructed images were created by the technologist. Radiation optimization: All CT scans at this facility use at least one of these dose optimization techniques: automated exposure control; mA and/or kV adjustment per patient size (includes targeted exams where dose is matched to clinical indication); or iterative reconstruction. Contrast material: OMNIPAQUE 350; Contrast volume: 125 ml; Contrast route: INTRAVENOUS (IV); COMPARISON: CT chest abdpel w/*[id number] 11/22/2019 10:53 AM RADIATION DOSE METRICS: Total DLP (mGy-cm): 1629.45 FINDINGS: Aorta: The aorta is normal in caliber without aneurysm or dissection. There are scattered calcified and noncalcified plaque. Celiac trunk and mesenteric arteries: There is moderate narrowing of the origin of the celiac axis with stenosis estimated at 50-60%. The SMA origin is widely patent. The VIOLETA is patent. Renal arteries: There is a single patent renal artery on the right. There is a single patent renal artery on the left. Right iliac arteries: Mild plaque without high-grade stenosis or occlusion. Right femoral/popliteal arteries: There is mild plaque without high-grade stenosis or occlusion involving the right common femoral artery. There is mild plaque involving the proximal right SFA. The mid right SFA is occluded (series 5, image 580). There is reconstitution more distally. The popliteal artery is patent. Right infrapopliteal arteries: No occlusion or significant stenosis. Left iliac arteries: Mild plaque without high-grade stenosis or occlusion. Left femoral/popliteal arteries: There is mild plaque involving the left common femoral, superficial femoral and popliteal arteries without high-grade stenosis or occlusion. Left infrapopliteal arteries: No occlusion or significant stenosis. Lungs: There is linear scarring or atelectasis involving the right middle lobe and left lung base. Liver: There is diffuse fatty infiltration of the liver. The liver is otherwise normal. Diaphragm: There may be a small hiatal hernia. Gallbladder and biliary ducts: Unremarkable. No calcified stones. No ductal dilation. Pancreas: Unremarkable. No mass. No ductal dilation. Spleen: Normal. No splenomegaly. Adrenal glands: Normal. No mass. Kidneys and ureters: There is a degree of cortical scarring involving the right kidney. No hydronephrosis is noted. No definite renal masses identified. Stomach and bowel: Unremarkable. No obstruction. No mucosal thickening. Appendix: No evidence of appendicitis. Urinary bladder: There is a mass projecting into the base of the urinary bladder. This mass appears to be contiguous with the prostate gland and likely represents an enlarged median lobe of the prostate gland. No abnormalities are otherwise noted with regards to the urinary bladder. Reproductive: The prostate gland is enlarged. Intraperitoneal space: Unremarkable. No free air. No significant fluid collection. Lymph nodes: No lymphadenopathy. Bones/joints: No acute fracture. No dislocation. Soft tissues: There is a fat filled left inguinal hernia. CT/CT angio abd aorta runof [id number] IMPRESSION: 1. Atherosclerosis. Details are given above. 2. Occlusion involving the mid right SFA with slightly more distal reconstitution. 3. Fatty infiltration of the liver. 4. Cortical scarring right kidney. 5. Enlarged prostate gland.
[2024-04-26] MEDS: iohexol 350 mg/mL 500 mL Btl (per mL) IV (08:42)
== END 2024-04-26 07:39 | disposition home or self-care (01) ==
LOC: RAD 07:41
PROVIDERS: PCP Electrodiagnostic Medicine; Visit Provider Electrodiagnostic Medicine
DX: I70.213 Atherosclerosis of native arteries of extremities with intermittent claudication, bilateral legs (principal); I70.8 Atherosclerosis of other arteries; K76.0 Fatty (change of) liver, not elsewhere classified; N26.9 Renal sclerosis, unspecified; N40.0 Benign prostatic hyperplasia without lower urinary tract symptoms; I70.0 Atherosclerosis of aorta; I77.4 Celiac artery compression syndrome; J98.4 Other disorders of lung; R93.5 Abnormal findings on diagnostic imaging of other abdominal regions, including retroperitoneum; R93.421 Abnormal radiologic findings on diagnostic imaging of right kidney; K40.90 Unilateral inguinal hernia, without obstruction or gangrene, not specified as recurrent
CPT/HCPCS: 75635

== ENCOUNTER 2024-06-29 07:26 | Outpatient (CLI) | payer BC, SELFPAY ==
--- NOTE | 2024-06-29 07:32 | CT_ITS ---
WS: [id number] CT chest w con* [id number] HISTORY: SOLITARY PULMONARY NODULE TECHNIQUE: Axial imaging performed through the thorax. Coronal and sagittal reformats are submitted. All CT scans at [facility] use at least one of these dose optimization techniques: automated exposure control; mA and/or kV adjustment per patient size (includes targeted exams where dose is matched to clinical indication); or iterative reconstruction. CONTRAST: Omnipaque 350; 100 mL IV. DLP: 428.57 mGy.cm COMPARISON: 04/26/2024, 02/05/2022, 12/13/2020 Lungs and central airway: Wedge-shaped subsolid opacification abutting the pleura of the RIGHT upper lobe measures 1.5 x 2.3 cm and has been present on multiple prior exams but slowly increasing in size. Additional 1.0 cm subsolid opacification RIGHT upper lobe, image 21 series 4. Subcentimeter groundglass opacification RIGHT middle lobe. Mild interstitial thickening at the RIGHT lung base. LEFT upper lobe groundglass attenuation measures 2.0 x 1.2 cm and has increased in size since 02/05/2022. Multifocal areas of consolidation with tree-in-bud airspace disease and pleural thickening with a small amount of adjacent reactive pleural fluid at the LEFT lung base. This consolidation at the LEFT base was not present on a recent CT angiogram of 04/26/2024. Benign calcified granuloma LEFT lung lower lobe. Pleura: Very tiny LEFT pleural effusion in the LEFT lower lobe adjacent to the opacification. Heart and pericardium: Mild cardiomegaly. Mediastinum and jane: Mediastinal and hilar lymph nodes have slightly increased in size and number since 02/05/2022. Numerous lymph nodes are present. Majority of these lymph nodes are mildly hypervascular and maintain an ovoid shape. Largest lymph node along the AP window is 2.0 cm. Smaller hilar lymph nodes. Subcarinal lymph node is 1.8 cm. Vessels: Mild atherosclerosis aorta. No aneurysm. Mildly enlarged pulmonary artery. Chest wall and lower neck: No soft tissue masses. Upper abdomen: Small hiatal hernia. Cortical thinning in focal atrophy upper pole RIGHT kidney. No adrenal mass. Mild diffuse gastric wall thickening similar to prior studies. Osseous structures: No destructive process. CT/CT chest w con* [id number] IMPRESSION: 1. RIGHT upper lobe wedge-shaped subsolid opacification has increased in size slowly over several prior years. Now measuring 1.5 x 2.3 cm. 2. LEFT upper lobe groundglass opacification slowly increasing in size now alisson suring 2.0 x 1.2 cm. 3. New area of dense consolidation and adjacent tree-in-bud airspace disease w ith pleural thickening and reactive pleural fluid in the LEFT lower thorax. Con solidation was not present on recent CT angiogram dated 04/26/2024. Suspect this is probably pneumonia. Consider aspiration pneumonia also. 4. Subsolid opacification RIGHT upper lobe. 5. Mediastinal hilar lymph nodes have slightly increased in size and number si nce 02/05/2022. May be reactive or neoplastic. 6. Diffuse, gastric wall thickening similar to prior studies. Recommendation: Recommend short-term follow-up after treatment for pneumonia es pecially concerning the LEFT lower lobe opacification. PET/CT would also be rec ommended to further evaluate the persistent slowly growing wedge-shaped subsoli d opacification in the RIGHT upper lobe and the groundglass opacification in th e LEFT upper lobe.
[2024-06-29 08:12] LABS: Blood Urea Nitrogen 24 mg/dL (8-23)
[2024-06-29] MEDS: iohexol 350 mg/mL 500 mL Btl (per mL) IV (08:28)
== END 2024-06-29 07:27 | disposition home or self-care (01) ==
PROVIDERS: Radiology Diagnostic Radiology; PCP Electrodiagnostic Medicine; Visit Provider Electrodiagnostic Medicine
DX: R91.1 Solitary pulmonary nodule (principal); R91.8 Other nonspecific abnormal finding of lung field; J98.4 Other disorders of lung; J92.9 Pleural plaque without asbestos; R59.0 Localized enlarged lymph nodes; K31.89 Other diseases of stomach and duodenum; J84.10 Pulmonary fibrosis, unspecified; I51.7 Cardiomegaly; I70.0 Atherosclerosis of aorta; I28.1 Aneurysm of pulmonary artery; K44.9 Diaphragmatic hernia without obstruction or gangrene; N26.1 Atrophy of kidney (terminal)
CPT/HCPCS: 71260; 82565; 84520

== ENCOUNTER 2024-06-30 15:25 | Oncology outpatient (recurring) (ONCR) | payer BC, SELFPAY ==
[2024-06-30 16:41] LABS: Basophils # 0.1 10^3/uL (0.0-0.1); Basophils % 0.8 %; Eosinophils # 0.1 10^3/uL (0.0-0.8); Eosinophils % 1.5 %; Hematocrit 41.4 % (37-53); Lymphocytes # 2.2 10^3/uL (0.8-4.8); Lymphocytes % 32.7 %; Mean Corpuscular HGB Conc 31.9 g/dL (30-55); Mean Corpuscular Hemoglobin 28.4 pg (27-33); Mean Platelet Volume 10.5 fL (7.4-10.4); Monocytes # 0.6 10^3/uL (0.2-0.9); Monocytes % 8.9 %; Neutrophils # 3.73 10^3/uL (1.8-7.7); Neutrophils % 55.9 %; Nucleated Red Blood Cells % 0 %; Platelet Count 323 10^3/cmm (157-399); Red Blood Count 4.65 10^6/uL (3.85-5.65); Red Cell Distribution Width 13.1 % (12.1-15.1); White Blood Count 6.66 10^3/uL (3.29-11.43)
[2024-06-30 16:46] LABS: Alanine Aminotransferase 9 U/L (0-41); Albumin Level 3.5 g/dL (3.5-5.2); Alkaline Phosphatase 110 U/L (40-130); Anion Gap 17.4 (5-19); Aspartate Amino Transferase 31 U/L (0-40); Blood Urea Nitrogen 24 mg/dL (8-23); Calcium 8.9 mg/dL (8.5-10.5); Carbon Dioxide 23 mmol/L (22-29); Chloride 102 mmol/L (98-107); Creatinine Clr Calc Pharmacy 45.8929; Globulin 3.4 g/dL (1.3-4.6); Glucose 82 mg/dL (65-115); Lactate Dehydrogenase 159 U/L (135-225); Osmolality Calculated 289 mOsm/kg (285-295); Potassium 4.4 mmol/L (3.5-5.1); Sodium 138 mmol/L (136-145); Total Bilirubin 0.5 mg/dL (0.15-1.2); Total Protein 6.9 g/dL (6.6-8.7)
== END 2024-07-23 23:59 | disposition home or self-care (01) ==
PROVIDERS: PCP Electrodiagnostic Medicine; Visit Provider Internal Medicine
DX: C43.4 Malignant melanoma of scalp and neck (principal); R91.8 Other nonspecific abnormal finding of lung field
CPT/HCPCS: 36415; 80053; 83615; 85025

== ENCOUNTER → 2024-07-12 14:36 | Outpatient (BNVA) | payer MEDICARE, SELFPAY | PROVIDERS: PCP Electrodiagnostic Medicine; Visit Provider Internal Medicine Cardiovascular Disease | DX: I48.91 Unspecified atrial fibrillation (principal); Z79.01 Long term (current) use of anticoagulants; I10 Essential (primary) hypertension; E78.5 Hyperlipidemia, unspecified; I65.23 Occlusion and stenosis of bilateral carotid arteries; Z86.73 Personal history of transient ischemic attack (TIA), and cerebral infarction without residual deficits; Z87.891 Personal history of nicotine dependence | CPT/HCPCS: 99214 ==

== ENCOUNTER 2024-10-06 12:40 | Oncology outpatient (recurring) (ONCR) | payer MEDICARE, SELFPAY ==
[2024-10-06 13:21] LABS: Hematocrit 46.1 % (37-53); Hemoglobin 14.90 g/dL (11.27-16.99); Mean Corpuscular HGB Conc 32.3 g/dL (30-55); Mean Corpuscular Hemoglobin 28.8 pg (27-33); Mean Corpuscular Volume 89.2 fl (82-101); Nucleated Red Blood Cells % 0 %; Platelet Count 224 10^3/cmm (157-399); Red Blood Count 5.17 10^6/uL (3.85-5.65); White Blood Count 6.87 10^3/uL (3.29-11.43)
[2024-10-06 13:41] LABS: Alanine Aminotransferase 9 U/L (0-41); Albumin Level 4.1 g/dL (3.5-5.2); Alkaline Phosphatase 53 U/L (40-130); Anion Gap 16.8 (5-19); Aspartate Amino Transferase 38 U/L (0-40); Blood Urea Nitrogen 37 mg/dL (8-23); Calcium 9.5 mg/dL (8.5-10.5); Carbon Dioxide 22 mmol/L (22-29); Chloride 106 mmol/L (98-107); Creatinine Clr Calc Pharmacy 34.5786; Globulin 3.5 g/dL (1.3-4.6); Glucose 99 mg/dL (65-115); Osmolality Calculated 301 mOsm/kg (285-295); Potassium 3.8 mmol/L (3.5-5.1); Sodium 141 mmol/L (136-145); Total Protein 7.6 g/dL (6.6-8.7)
== END 2024-10-23 23:59 | disposition home or self-care (01) ==
PROVIDERS: PCP Electrodiagnostic Medicine; Visit Provider Internal Medicine
DX: Z08 Encounter for follow-up examination after completed treatment for malignant neoplasm (principal); Z85.820 Personal history of malignant melanoma of skin; R91.8 Other nonspecific abnormal finding of lung field; Z87.891 Personal history of nicotine dependence; N18.9 Chronic kidney disease, unspecified
CPT/HCPCS: 36415; 80053; 83615; 85025; 99213

== ENCOUNTER → 2024-11-25 08:02 | Outpatient (BNVA) | payer MEDICARE, SELFPAY | PROVIDERS: PCP Electrodiagnostic Medicine; Visit Provider Dermatology | DX: L23.9 Allergic contact dermatitis, unspecified cause (principal); D22.5 Melanocytic nevi of trunk; L57.8 Other skin changes due to chronic exposure to nonionizing radiation; L81.4 Other melanin hyperpigmentation; L82.1 Other seborrheic keratosis; Z85.828 Personal history of other malignant neoplasm of skin; Z08 Encounter for follow-up examination after completed treatment for malignant neoplasm; Z85.820 Personal history of malignant melanoma of skin; D48.5 Neoplasm of uncertain behavior of skin; L57.0 Actinic keratosis | CPT/HCPCS: 11102; 17000; 99214 ==

== ENCOUNTER → 2024-12-13 15:00 | Outpatient (BNVA) | payer MEDICARE, SELFPAY | PROVIDERS: PCP Electrodiagnostic Medicine; Visit Provider Internal Medicine Cardiovascular Disease | DX: I10 Essential (primary) hypertension (principal); I65.23 Occlusion and stenosis of bilateral carotid arteries; I48.91 Unspecified atrial fibrillation; Z87.891 Personal history of nicotine dependence; Z79.01 Long term (current) use of anticoagulants | CPT/HCPCS: 99214 ==

== ENCOUNTER 2025-01-05 08:30 | Oncology outpatient (recurring) (ONCR) | payer MEDICARE, SELFPAY ==
[2024-12-28] MEDS: iohexol 350 mg/mL 500 mL Btl (per mL) PO (11:20)
--- NOTE | 2024-12-28 12:00 | CTR_ITS ---
PROCEDURE INFORMATION: Exam: CT Chest Without Contrast; Diagnostic Exam date and time: 12/28/2024 12:06 PM Age: 84 years old Clinical indication: Condition or disease; Other: Melanoma, prior surgery; Surgery date: 6+ months; Surgery type: Hernia TECHNIQUE: Imaging protocol: Diagnostic computed tomography of the chest without contrast. Radiation optimization: All CT scans at this facility use at least one of these dose optimization techniques: automated exposure control; mA and/or kV adjustment per patient size (includes targeted exams where dose is matched to clinical indication); or iterative reconstruction. COMPARISON: 1. CT chest w con* [id number] 02/05/2022 10:[address] angio abd aorta runof [id number] 04/26/2024 8:[address] chest w con* [id number] 06/29/2024 8:[address] chest abdpel w/*[id number] 11/22/2019 10:53 AM RADIATION DOSE METRICS: Total DLP (mGy-cm): 837.01 FINDINGS: Thyroid: The thyroid gland appears unremarkable. Trachea: Trachea is midline in position. Central airways are clear. Lungs: Fibrosis and scarring of the right and left lung apex appears similar. 2.4 x 2.4 x 1.9 cm masslike area of airspace consolidation and associated architectural distortion within the periphery of the right upper lobe is unchanged. There are a few central air bronchograms. This extends to the pleural surface. 11 x 13 mm nodular airspace opacity within the posteromedial aspect of the right upper lobe is unchanged. 3.1 x 3.0 x 2.0 cm ground-glass airspace opacity within the left upper lobe is unchanged. 1.3 cm ground-glass opacity within the medial segment of the right middle lobe is unchanged. 5 mm ground-glass nodule within the posterior aspect of the right lower lobe is unchanged. Previously seen additional scattered areas of septal thickening, nodularity and ground-glass airspace opacity within the posteromedial aspect of the right lower lobe have resolved. Previously seen areas of airspace consolidation within the left lower lobe has near completely resolved. There is mild residual peribronchial thickening and a few areas of persistent atelectatic change within the posterior aspect of the left lower lobe. 9 mm calcified granuloma of the left lung base is unchanged. Small areas of bullous emphysematous change within the central and medial aspect of the right upper lobe appear unchanged. Faint 2 mm nodule within the left upper lobe is unchanged. (image 19 of series 5). Patchy ground-glass airspace opacity within the lateral aspect of the left upper lobe is unchanged. 7 mm pleural-based nodule within the medial aspect of the left upper lobe (image 8 of series 5) appears similar. Pleural spaces: No pleural effusion. Heart: Heart size is upper limits for normal. Scattered coronary artery calcifications are present. Lymph nodes: There are no enlarged or suspicious supraclavicular lymph nodes. Mildly enlarged precarinal lymph node measuring up to 11 mm in short axis is unchanged. There are numerous additional smaller pretracheal and prevascular lymph nodes which appear unchanged. Enlarged mediastinal lymph node along the aortopulmonary window appears unchanged. Enlarged subcarinal lymph node is unchanged. Calcified hilar lymph nodes are present bilaterally. Evaluation of the hilar structures is limited by lack of intravenous contrast. Vasculature: Normal caliber of the ascending and descending thoracic aorta. Atherosclerotic plaque at the aortic arch. Main pulmonary artery is mildly enlarged. Findings are unchanged. Bones/joints: Multilevel degenerative changes are present throughout the spine. No acute fracture. No suspicious bone lesion. Soft tissues: No suspicious axillary mass or lymphadenopathy. PROCEDURE INFORMATION: Exam: CT Abdomen And Pelvis Without Contrast Exam date and time: 12/28/2024 12:06 PM Age: 84 years old Clinical indication: Condition or disease; Other: Melanoma, prior surgery; Surgery date: 6+ months; Surgery type: Hernia TECHNIQUE: Imaging protocol: Computed tomography of the abdomen and pelvis without contrast. Radiation optimization: All CT scans at this facility use at least one of these dose optimization techniques: automated exposure control; mA and/or kV adjustment per patient size (includes targeted exams where dose is matched to clinical indication); or iterative reconstruction. COMPARISON: CT angio abd aorta runof [id number] 04/26/2024 8:27 AM RADIATION DOSE METRICS: Total DLP (mGy-cm): 837.01 FINDINGS: Limitations: Lack of intravenous contrast. Diaphragm: Probable small hiatal hernia. Liver: There are a few scattered calcifications within the liver. Findings more suggestive of prior granulomatous disease. No large mass or lesion within the liver. Evaluation for an underlying mass or lesion is limited by lack of intravenous contrast. Gallbladder and biliary ducts: The gallbladder is unremarkable. No biliary ductal dilatation. Pancreas: The pancreas is unremarkable. Spleen: Numerous punctate calcifications are present within the spleen in keeping with prior granulomatous disease. No large mass or lesion within the spleen. Evaluation is limited with lack of intravenous contrast. Adrenal glands: The adrenal glands are unremarkable. Kidneys and ureters: Cortical defect along the upper pole of the right kidney is unchanged. No contour deforming mass or lesion within the right and left kidney. Evaluation is limited by lack of intravenous contrast. No hydronephrosis. No renal calculi. Stomach and bowel: Stomach appears unremarkable. Small bowel loops are normal in caliber. Colon appears unremarkable. Appendix: Normal appendix. Intraperitoneal space: No significant peritoneal free fluid. No free peritoneal air. Vasculature: No infrarenal abdominal aortic aneurysm. [id number] amount of peripheral atherosclerotic plaque along the length of the abdominal aorta. Scattered atherosclerotic plaque along the right and left iliac arteries. Lymph nodes: There are no enlarged or suspicious intra-abdominal, pelvic or retroperitoneal lymph nodes. Urinary bladder: Mild circumferential bladder wall thickening in keeping with bladder wall trabeculation. No focal mass or bladder calculus. Reproductive: Prostate is enlarged and impresses upon the base of the bladder. Bones/joints: Scattered areas of sclerosis within the pelvis and involving the proximal right and left femur are unchanged. No new suspicious lytic or sclerotic bone lesion. No acute fracture. Mild degenerative changes are present throughout the lumbar spine. Soft tissues: Small left inguinal hernia containing fat. Potential small right inguinal hernia containing fat versus fatty spermatic cord. Please correlate with any history of right inguinal hernia repair. Other findings: Evaluation is limited with lack of intravenous contrast. CT/[place] [id number] IMPRESSION: 1. Previously seen area of postinfectious or postinflammatory change within the left lower lobe has near completely resolved. Previously seen areas of postinflammatory or postinfectious change within the posterior aspect of the right lower lobe have resolved. 2. Masslike airspace consolidation which extends to the pleural surface within the periphery of the right upper lobe is unchanged compared to the most recent prior examination but has increased in size over time. This is concerning for neoplastic disease. Smaller focal airspace opacity within the posteromedial aspect of the right upper lobe appears unchanged. This is indeterminate. Ground-glass airspace opacity within the posterior aspect of the left upper lobe does not appear significantly changed. Adenocarcinoma in-situ is not excluded. Peripheral airspace opacity within the left upper lobe is unchanged. Other previously seen small nodules and opacities have not significantly changed. Continued surveillance is recommended. 3. Mediastinal lymphadenopathy is unchanged compared to the most recent prior exam. IMPRESSION: 1. No acute findings within the abdomen or pelvis. Evaluation for visceral metastatic disease is limited by lack of intravenous contrast. No new suspicious mass or lesion is identified on this noncontrast evaluation. 2. Prostate is markedly enlarged and impresses upon the base of the bladder. 3. Probable postsurgical changes are present from prior right inguinal hernia repair. Small left inguinal hernia containing fat. 4. No suspicious lymphadenopathy within the abdomen or pelvis. 5. Small hiatal hernia. 6. No new suspicious lytic or sclerotic bone lesion.
[2025-01-05 08:47] LABS: Hematocrit 49.2 % (37-53); Hemoglobin 15.10 g/dL (11.27-16.99); Mean Corpuscular HGB Conc 30.7 g/dL (30-55); Mean Corpuscular Hemoglobin 28.0 pg (27-33); Mean Corpuscular Volume 91.1 fl (82-101); Nucleated Red Blood Cells % 0 %; Platelet Count 220 10^3/cmm (157-399); Red Blood Count 5.40 10^6/uL (3.85-5.65); White Blood Count 8.56 10^3/uL (3.29-11.43)
[2025-01-05 09:14] LABS: Alanine Aminotransferase 6 U/L (0-41); Albumin Level 4.2 g/dL (3.5-5.2); Alkaline Phosphatase 116 U/L (40-130); Blood Urea Nitrogen 23 mg/dL (8-23); Calcium 9.4 mg/dL (8.5-10.5); Carbon Dioxide 24 mmol/L (22-29); Chloride 105 mmol/L (98-107); Globulin 3.8 g/dL (1.3-4.6); Glucose 109 mg/dL (65-115); Osmolality Calculated 298 mOsm/kg (285-295); Sodium 142 mmol/L (136-145); Total Protein 8.0 g/dL (6.6-8.7)
[2025-01-05 09:27] LABS: Anion Gap 17.5 (5-19); Aspartate Amino Transferase 25 U/L (0-40); Potassium 4.5 mmol/L (3.5-5.1)
== END 2025-01-22 23:59 | disposition home or self-care (01) ==
PROVIDERS: PCP Electrodiagnostic Medicine; Visit Provider Internal Medicine
DX: Z08 Encounter for follow-up examination after completed treatment for malignant neoplasm; Z85.820 Personal history of malignant melanoma of skin; R91.8 Other nonspecific abnormal finding of lung field; N18.9 Chronic kidney disease, unspecified; G47.33 Obstructive sleep apnea (adult) (pediatric); I10 Essential (primary) hypertension; Z87.891 Personal history of nicotine dependence; Z53.9 Procedure and treatment not carried out, unspecified reason
CPT/HCPCS: 36415; 71250; 74176; 80053; 83615; 85025; 99213